=== PATIENT | male | born 1980 | race Caucasian/White ===

== ENCOUNTER 2017-02-02 23:57 | Emergency (ER) | payer SELFPAY ==
[~2017-02-02] VITALS: Ht 162.6 cm; Wt 94.0 kg
[2017-02-03 00:02] VITALS: Ht 162.6 cm; Wt 94.0 kg
--- NOTE | 2017-02-03 02:57 | ERD ---
ER Documentation Chief Complaint Date/Time DATE: 02/03/17 TIME: 02:54 Chief Complaint right foot pain x 2 mos, denies injury/fall HPI 36-year-old male presents to emergency department for complaints of right foot pain for 2 months now, patient denies any trauma on affected area. Patient denies any numbness or tingling. Patient denies any fever or chills. Patient denies any redness or swelling. Patient discussed the pain as throbbing pain, 6 /10 scale, not better or worse with anything. Patient did not take any medications to help with symptoms. ROS All systems reviewed and are negative except as per history of present illness. Medications Home Meds Reported Medications [none] Unknown Strength No Conflict Check 02/03/17 Allergies Allergies: Coded Allergies: No Known Allergy (Unverified , 02/03/17) PMhx/Soc Medical and Surgical Hx: pt denies Medical Hx, pt denies Surgical Hx Hx Alcohol Use: No Hx Substance Use: No Hx Tobacco Use: No Smoking Status: Never smoker FmHx Family History: No coronary disease, No diabetes, No other Physical Exam Vitals Vital Signs Date Time Temp Pulse Resp B/P Pulse Ox O2 Delivery O2 Flow Rate FiO2 02/03/17 00:02 98.3 94 20 127/71 99 Physical Exam GENERAL: The patient is well developed and appropriate for usual state of health, in no apparent distress. CHEST: Clear to auscultation bilaterally. There are no rales, wheezes or rhonchi. HEART: Regular rate and rhythm. No murmurs, clicks, rubs or gallops. No S3 or S4. ABDOMEN: Soft, nontender and nondistended. Good bowel sounds. No rebound or guarding. No gross peritonitis. No gross organomegaly or masses. No Hall sign or McBurney point tenderness. BACK: No midline or flank tenderness. EXTREMITIES: Equal pulses bilaterally. There is no peripheral clubbing, cyanosis or edema. No focal swelling or erythema. Full range of motion. Grossly neurovascularly intact. NEURO: Alert and oriented. Cranial nerves 2-12 intact. Motor strength in all 4 extremities with 5/5 strength. Sensation grossly intact. Normal speech and gait. SKIN: There is no apparent rash or petechia. The skin is warm and dry. HEMATOLOGIC AND LYMPHATIC: There is no evidence of excessive bruising or lymphedema. No gross cervical, axillary, or inguinal lymphadenopathy. Results 24 hrs PROCEDURE: XR Foot. CLINICAL INDICATION: Pain TECHNIQUE: AP, lateral and oblique views of the right foot was obtained. The images were reviewed on a PACS workstation. COMPARISON: None. FINDINGS: The bones of the foot appear intact, with no evidence of acute fracture, dislocation, or subluxation. The joint spaces are preserved. Bone mineralization is normal. No significant soft tissue swelling is seen. IMPRESSION: No evidence of fracture. Physician Joi Date Time Electronically viewed and signed by Physician Joi on 02/03/2017 03: 11 CS/ CC: WILBER LEYVA BEARINGIZER Procedures/MDM Medical Decision Making: Patient's pain is most likely consistent with a foot sprain or plantar fascitis. There is no suspicion for neurovascular compromise. Patient has intact sensation and circulation of the affected extremity. There is low suspicion for septic arthritis. Patient does not have any fever. Radiology exams of the affected area does not show any fracture or dislocation. Disposition: Home. Patient is given prescription for ibuprofen for pain, Tramadol for severe pain. Patient was advised to elevate the affected area and apply ice on affected area. Patient was advised that if symptoms are worse, numbness, tingling, high fever, unable to move joint, worsening symptoms, to return to emergency department immediately. Otherwise, patient is advised to follow up with the primary care doctor in 5-7 days for reevaluation of symptoms. Disclaimer: Inadvertent spelling and grammatical errors are likely due to EHR/ dictation software use and do not reflect on the overall quality of patient care. Also, please note that the electronic time recorded on this note does not necessarily reflect the actual time of the patient encounter. Departure Diagnosis: Primary Impression: Foot pain Laterality: right Qualified Code: M79.671 - Right foot pain Condition: Stable Patient Instructions: Sprain Foot Additional Instructions: Patient is given prescription for ibuprofen for pain, Tramadol for severe pain. Patient was advised to elevate the affected area and apply ice on affected area. Patient was advised that if symptoms are worse, numbness, tingling, high fever, unable to move joint, worsening symptoms, to return to emergency department immediately. Otherwise, patient is advised to follow up with the primary care doctor in 5-7 days for reevaluation of symptoms. WILBER LEYVA NP Feb 03, 2017 02:57
--- NOTE | 2017-02-03 03:11 | RADRPT ---
PROCEDURE: XR Foot. CLINICAL INDICATION: Pain TECHNIQUE: AP, lateral and oblique views of the right foot was obtained. The images were reviewed on a PACS workstation. COMPARISON: None. FINDINGS: The bones of the foot appear intact, with no evidence of acute fracture, dislocation, or subluxation . The joint spaces are preserved. Bone mineralization is normal. No significant soft tissue swelling is seen. IMPRESSION: No evidence of fracture. Physician Joi Date Time Electronically viewed and signed by Physician Joi on 02/03/2017 03:11 CS/
[2017-02-03] MEDS ORDERED: TRAM50TA2 PO (03:33)
[2017-02-03] MEDS ORDERED: IBUP-1542 PO (03:33)
== END 2017-02-03 03:43 | disposition home or self-care (01) ==
LOC: FTE 23:57
DX: M79.671 Pain in right foot (principal)
CPT/HCPCS: 73630